=== PATIENT | female | born 1990 | race Caucasian/White ===

== ENCOUNTER 2017-11-09 19:18 | Emergency (ER) | payer MEDICAID, SELFPAY ==
[2017-11-09 19:19] VITALS: BP 138/89; PULSE 120; RESP 20; TEMP 36.6; O2SAT 100; BMI 23.9
--- NOTE | 2017-11-09 19:36 | ED.VISSUMM ---
- ER Visit Summary Date of Service: 11/09/17 Chief Complaint: Acute allergic reaction History of Present Illness: The patient is a 27 F no significant past medical history. About an hour ago she [place] Then developed rash, itching and swelling to her lips and tongue. No trouble breathing or swallowing. She is never had anything like this before. She is never had a reaction before. The only medication she is currently on his Suboxone. She is not on any type of blood pressure medication. Physical Examination: Well-appearing young female. Vital signs are stable afebrile. Pulse ox 100% on room air no signs of hypoxia. She is anxious but no distress. H EENT exam mild swelling to her lips and tongue. No drooling. No stridor. No airway compromise. Neck nontender no lymphadenopathy. Lungs clear to auscultation bilaterally. No rales rhonchi or wheezing. Heart tachycardic no murmur. Abdomen soft nontender. She is moving all 4 extremities. The neurovascular intact. Back nontender. Skin she does have a few scattered areas of rash and hives. There is no petechiae or purpura. No vesicles. No sloughing of skin. No cellulitis. Neurologically she is awake alert without focal motor deficits. Test Results: None Emergency Department Course and Treatment: Treated with IV Solu-Medrol, IV Benadryl and IV Pepcid. Treatment Plan: Patient doing much much better at 1944 and 2034. The swelling of her lips and tongue is nearly resolved. Her anxiety is resolving. Is much much better. She will be discharged home with prescription for prednisone as needed. Return if worse. Disposition: Discharge Impression: Acute allergic reaction with hives and tongue and lip swelling of uncertain etiology This note was generated with [employer] dictation software. It may contain incorrect words, spelling, and punctuation that were not noted in review of the chart prior to signing ED Disposition - Plan for ED Patient: Disposition: Home or Assisted Living Chief Complaint: Allergic Reaction Instructions: ED Allergic Reaction General Other Prescriptions: Prednisone [Deltasone] 40 mg PO DAILY 5 Days tab Referrals: Care Physician,No Primary [Primary Care Provider] - As Needed Additional Instructions: Allergic reaction with rash and facial tongue swelling most likely from the fruit you ate but could be anything that you came in contact with. Only use these prednisone if you still have a rash or continued tongue or lip swelling. Once it is resolved you do not need the medication. Return if getting worse or any trouble swallowing or breathing. Ice to any swollen areas.
--- NOTE | 2017-11-09 19:38 | ED.DEP ---
ED Disposition - Plan for ED Patient: Disposition: Home or Assisted Living Chief Complaint: Allergic Reaction Instructions: ED Allergic Reaction General Other Prescriptions: Prednisone [Deltasone] 40 mg PO DAILY 5 Days tab Referrals: Care Physician,No Primary [Primary Care Provider] - As Needed Additional Instructions: Allergic reaction with rash and facial tongue swelling most likely from the fruit you ate but could be anything that you came in contact with. Only use these prednisone if you still have a rash or continued tongue or lip swelling. Once it is resolved you do not need the medication. Return if getting worse or any trouble swallowing or breathing. Ice to any swollen areas.
[2017-11-09] MEDS: MethylPREDNISolone 125 MG/2 ML Vial IV (19:40)
[2017-11-09] MEDS: DiphenhydrAMINE 50 MG/ML Syringe IV (19:40)
[2017-11-09 19:43] VITALS: BP 140/80; PULSE 105; RESP 14; O2SAT 98
[2017-11-09 20:38] VITALS: PULSE 102; RESP 14; O2SAT 98
== END 2017-11-09 20:39 | disposition home or self-care (01) ==
PROVIDERS: Emergency Provider Emergency Medicine
DX: T78.40XA Allergy, unspecified, initial encounter (principal); X58.XXXA Exposure to other specified factors, initial encounter; R22.0 Localized swelling, mass and lump, head; L50.9 Urticaria, unspecified
CPT/HCPCS: 99283; J7030; A4216; J3490

== ENCOUNTER 2019-04-09 16:56 | Emergency (ER) | payer SELFPAY ==
[2019-04-09 16:58] VITALS: BP 131/85; PULSE 99; RESP 16; TEMP 37; O2SAT 100; BMI 21.4
[2019-04-09 17:37] VITALS: BP 131/84; PULSE 85; RESP 18; O2SAT 98
--- NOTE | 2019-04-09 17:46 | EKG12_ITS ---
Test Reason : PALP Blood Pressure : / mmHG Vent. Rate : 087 BPM Atrial Rate : 087 BPM P-R Int : 138 ms QRS Dur : 070 ms QT Int : 358 ms P-R-T Axes : 065 055 053 degrees QTc Int : 430 ms Normal sinus rhythm with sinus arrhythmia Normal ECG Confirmed by SAMEER MADDOX, JUDY ([id number]), society editor VIRGEN WELLS ([id number]) on 04/11/2019 1:01:19 PM Referred By: Confirmed By:JUDY ESTRELLA MD
--- NOTE | 2019-04-09 17:47 | ED.VIS.GEN ---
History of Present Illness Chief Complaint: Palpitations Detail of Chief Complaint: Also feeling flushed, chest discomfort and nonproductive cough Informant: Patient, Significant Other Onset: Days - First episode occurred Tuesday. She had 2 episodes on Tuesday. She had no episodes yesterday. She had an episode today. Context: Sudden Onset Timing: Intermittent Quality: Feeling flushed, chest discomfort, palpitations Location: Chest Current Severity: Mild Maximum Severity: Moderate Worsened by: Stress Relieved by: Nothing Associated Symptoms: Tearful Narrative: Patient is a 28-year-old female with history of anxiety disorder who presents with nonproductive cough, palpitations chest discomfort and feeling warm/flush that first occurred Tuesday. She had a more significant episode today. She believes that stress. She denies fever, chills or night sweats. She does report mild congestion. Denies ear pain. Denies throat pain or change in voice. She denies dyspnea on exertion. Her cough is nonproductive. She states she has intermittent wheezing. She is a smoker 1 pack/day. She has cut down the amount she has smoked the past 2 days. She denies history of PE or DVT. She denies leg pain, swelling discoloration. She denies GI symptoms. Prior similar symptoms: Yes - Anxiety Recent Illness/Hospitalization: No - Past Medical History (1) Anxiety Status: Acute Past Medical History - Allergies and Home Meds Allergies/Adverse Reactions: Allergies codeine Allergy (Verified 04/09/19 16:57) Manuel Primary Care Physician: [facility] Doctor,Out of [NON-STAFF] - Prior records reviewed: Yes Surgical History: - - D&C ?3 Lives: Spouse/ Significant Other Smoking Status: Current every day smoker Alcohol: Rare Drugs: None Review of Systems General: Denies: Chills, Fever, Malaise, Subjective, Sweats, Weight loss, - Eyes: Denies: Visual changes - bilaterally, Diplopia ENT: Denies: Rhinorrhea, Sore throat Cardiovascular: Reports: Chest pain, Palpitations. Denies: Heart racing, -, - Respiratory: Reports: Cough. Denies: Dyspnea, Sputum, Dyspnea on exertion, Orthopnea, Paroxysmal nocturnal dyspnea, -, - Gastrointestinal: Denies: Abdominal pain, Nausea, Vomiting, Diarrhea, Melena, Hematochezia Musculoskeletal: Denies: Myalgias, Arthralgias, Neck pain, Back pain, Swelling, Extremity Pain, -, - Skin: Denies: Rash, Wounds Neurological: Denies: Headache, Weakness, Numbness Hematologic: Denies: Easy bruising, Easy bleeding Physical Exam Vital Signs/Narrative: Vital Signs Temp Pulse Resp BP Pulse Ox 04/09/19 17:37 85 18 131/84 H 98 04/09/19 16:58 98.6 F 99 16 131/85 H 100 Inital Vital Signs reviewed: Yes General: Well nourished, Well developed, No Acute Distress Head: Normocephalic, Atraumatic Eyes: Perrl, EOMI. Negative for: Pale conjunctiva, Scleral icterus ENT: Moist mucous membranes, No rhinorrhea, TM's clear Neck: Supple, Nontender, No lymphadenopathy, No JVD Cardiovascular: Regular rate, Regular rhythm, No murmurs, Normal S1, Normal S2 Respiratory: No distress, CTA bilaterally, Chest nontender Abdomen: Soft, Nontender, Nondistended, Normal bowel sounds Back: Nontender, Normal Inspection Extremities: Nontender, No edema, - - There is no asymmetry, swelling, discoloration, leg vein distention, palpable cords or tenderness along the distribution of the deep venous system. Skin: Normal color, No rash Neurological: Alert, Oriented x3, Cranial nerves II-XII grossly intact, Normal Strength, Normal Sensation Psychological: Tearful Diagnostic/Tx/Re-eval Chest X-Ray - ED: 2 View, Read by ED Physician, Normal, Heart, Lungs, Mediastinum, Bony Structures, No Acute Disease 04/09/19 17:57 Chest PA and Lateral [RAD] Stat - EKG Initial EKG Interpretation: Sinus Rhythm - Regular rate is 93. OK interval is 146. QS duration 78 ms. QT duration 368 ms. [place] is normal. The EKG is normal. There are no prior EKGs for comparison - Medical Decision Making KG was done per nursing protocol and is unremarkable. Because patient has shortness of breath with cough and intermittent wheezing will obtain chest x-ray to assess for pneumonia versus bronchitis. ED Disposition - Plan for ED Patient: Disposition: Home or Assisted Living Diagnosis: Upper respiratory infection, acute, Anxiety reaction, Palpitations Instructions: Palpitations, URI, Viral, No Abx (Adult) Referrals: [facility] Doctor,Out of [NON-STAFF] - 10-14 Days if not better
--- NOTE | 2019-04-09 17:57 | RAD_ITS ---
STUDY: X-RAY CHEST REASON FOR EXAM: Female, 28 years old. Palpitations TECHNIQUE: PA and lateral views of the chest. COMPARISON: 2015 FINDINGS: EKG leads overlie the chest The lungs are clear and expanded. There is no demonstrated pleural abnormality. Normal size heart. Normal mediastinum and maritza. Normal visualized pulmonary arteries. Normal visualized aortic arch and descending thoracic aorta. Normal visualized thoracic spine. Normal visualized ribs, clavicles, and shoulders. There is no demonstrated abnormality of the visualized soft tissue structures of the upper abdomen. RAD/Chest PA and Lateral IMPRESSION: Normal x-ray examination of the chest. Electronically Signed: Zenon Do MD at 18:26 EST , Service support ,
[2019-04-09 18:20] VITALS: BP 117/62; PULSE 69; RESP 16; O2SAT 100
== END 2019-04-09 18:21 | disposition home or self-care (01) ==
PROVIDERS: Emergency Provider Emergency Medicine
DX: J06.9 Acute upper respiratory infection, unspecified (principal); F41.1 Generalized anxiety disorder; R00.2 Palpitations; F17.200 Nicotine dependence, unspecified, uncomplicated
CPT/HCPCS: 71046; 93005; 99283

== ENCOUNTER 2019-09-22 14:29 | Emergency (ER) | payer SELFPAY ==
[2019-09-22 14:30] VITALS: BP 130/105; PULSE 128; RESP 18; TEMP 36.9; O2SAT 99; BMI 23.6
--- NOTE | 2019-09-22 14:37 | EKG12_ITS ---
Test Reason : PALPS Blood Pressure : / mmHG Vent. Rate : 108 BPM Atrial Rate : 108 BPM P-R Int : 124 ms QRS Dur : 070 ms QT Int : 354 ms P-R-T Axes : 074 061 068 degrees QTc Int : 474 ms Sinus tachycardia Confirmed by SAMEER MADDOX, JUDY ([id number]), editor greeting card BENJAMIN HAMILTON ([id number]) on 09/25/2019 3:23:22 PM Referred By: JOLENE Confirmed By:JUDY ESTRELLA MD
--- NOTE | 2019-09-22 14:37 | RAD_ITS ---
STUDY: X-RAY CHEST REASON FOR EXAM: Female, 29 years old. heart palpitations TECHNIQUE: Single AP portable view of the chest. COMPARISON: To April 27, 2019 FINDINGS: The lungs are clear and expanded. There is no demonstrated pleural abnormality. Normal size heart. Normal mediastinum and maritza. Normal visualized pulmonary arteries. Normal visualized aortic arch and descending thoracic aorta. Normal visualized thoracic spine. Normal visualized ribs, clavicles, and shoulders. There is no demonstrated abnormality of the visualized soft tissue structures of the upper abdomen. RAD/Chest 1 View (Portable) IMPRESSION: No evidence of acute cardiopulmonary process. Electronically Signed: Rusty Shipley DO at 15:30 EDT , Service support ,
[2019-09-22] MEDS: 0.9% Normal Saline 1,000 ML 1000 ML IV (14:52)
[2019-09-22 15:04] LABS: Absolute Lymphocyte Count 1.87 X10^3/uL (0.83-4.51); Absolute Neutrophil Count 5.3 X10^3/uL (2.0-7.7); Basophil# 0.04 X10^3/uL; Basophil% 0.5 % (0-1); Eosinophil# 0.18 X10^3/uL; Eosinophils% 2.2 % (0-5); Hematocrit 41.4 % (37-47); Hemoglobin 14.3 g/dL (12.0-15.0); Lymphocyte # 1.87 X10^3/ul (4.0); Lymphocyte % 23.3 % (19-41); Mean Corp Hgb Conc 34.5 g/dL (32-36); Mean Corpuscular Hgb 32.3 pg (27.0-32.0); Mean Corpuscular Volume 93.5 fL (81-99); Mean Platelet Vol. 9.2 fl (6.2-12.0); Monocyte# 0.62 X10^3/uL; Monocyte% 7.7 % (0-10); NRBC Flagged by Analyzer 0 % (0-5); Neutrophil % 65.9 % (47-70); Platelet Count 299 K/mm3 (150-450); RBC Distribution Width CV 12.3 % (11.6-14.6); RBC Distribution Width SD 42.5 fl (35.1-43.9); Red Blood Count 4.43 M/mm3 (4.2-5.4)
[2019-09-22 15:24] LABS: Internal QC Validated? YES +Cl - CLEAR BKGD; Pregnancy, Serum, hCG Quali. NEGATIVE Negative
[2019-09-22 15:26] LABS: D-Dimer Quantitative (DVT/PE) <= 0.27 FEU/ug/m (0.27-0.49)
[2019-09-22 15:27] LABS: Anion Gap 6 (5-15); BUN 10 mg/dL (7-18); BUN/Creat Ratio 11.1 RATIO (10-20); Calcium,Total 9.4 mg/dL (8.5-10.1); Chloride 108 mmol/L (98-107); EST Glomerular Filtration Rate 78 mL/min (>60); Est Glom Filt Rate - Afr Amer 94 mL/min (>60); Estimated Creatinine Clearance 78.21 ml/min; Glucose 108 mg/dL (74-106); Potassium 3.5 mmol/L (3.5-5.1); Sodium Level 140 mmol/L (136-145)
--- NOTE | 2019-09-22 15:37 | ED.DCSUM_ITS ---
- ER Visit Summary Date of Service: 09/22/19 Chief Complaint: Chest pain and palpitations History of Present Illness: The patient is a 29 F with no primary care physician. She reports she has chest pain that began 5 days ago is a continuous tightness. States that it is 8 out of 10 at worst and 2-10 currently. Is worsened by exertion. Is unchanged breathing. Is relieved by nothing. She reports that she is having episodes of palpitations. States that these last minute to hours at a time. She describes as a fast heart rate is not irregular. She is not experiencing this now. She reports that she has been nauseated, diaphoretic, and short of breath at times. Physical Examination: Vitals: Stable. Afebrile. General: Well-nourished and well-developed. Head: Normocephalic atraumatic. Neck: Supple, no lymphadenopathy. No JVD. Nontender. Cardiovascular: Regular rate and rhythm. No murmurs. Respiratory: No respiratory distress. Clear to auscultation bilaterally. Abdominal: Soft, nontender, nondistended, normal bowel sounds. No guarding, rebound, or peritoneal signs. Back: Nontender. Extremities: Nontender, no edema. Skin: Normal color, no rash. Neurologic: Alert and oriented ?3. Cranial nerves II through XII are intact. Normal strength and sensation. Psych: Normal affect. Test Results: EKG is sinus tach at [address] changes. Troponin is negative. D-dimer is negative. test is negative. Chem-7 shows a chloride 108 and glucose 108. TSH is normal. CBC is normal. Chest x-ray is normal. Emergency Department Course and Treatment: During their stay in the emerge dep artment the patient did have rates that went anywhere from 80-1 28. At this time I do not have an explanation for her symptoms. She is asking if I think that this is due to anxiety. Treatment Plan: This time I discussed the patient think that the safest thing to do would be to follow-up as an outpatient for further evaluation. This may be due to anxiety, but I do not think that changing medications at this time is in her best interest.. She is instructed to [facility] as soon as possible. Return to the emergency department for any wors ening symptoms. Disposition: To home in improved and stable condition. Impression: 1. Atypical chest pain. 2. Sinus tachycardia. This note was generated with [employer] dictation software. It may contain incorrect words, spelling, and punctuation that were not noted in review of the chart prior to signing ED Disposition - Plan for ED Patient: Disposition: Home or Assisted Living Instructions: ED Palpitations Referrals: Froylan Araujo MD [NON-STAFF] - 5-7 Days
[2019-09-22 15:55] VITALS: PULSE 85; RESP 12; O2SAT 97
== END 2019-09-22 15:55 | disposition home or self-care (01) ==
LOC: ED 15:48
PROVIDERS: Emergency Provider Emergency Medicine
DX: R07.89 Other chest pain (principal); R00.0 Tachycardia, unspecified
CPT/HCPCS: 71045; 80048; 84443; 84484; 84703; 85025; 85379; 93005; 96360; 99284; J7030; A4216

== ENCOUNTER 2019-12-24 15:10 | Emergency (ER) | payer SELFPAY ==
[2019-12-24 15:10] VITALS: BP 127/77; PULSE 90; RESP 16; TEMP 36.9; O2SAT 98; BMI 23.1
--- NOTE | 2019-12-24 16:08 | ED.VIS.GEN ---
History of Present Illness Chief Complaint: Abd Pain Informant: Patient Narrative: 29-year-old female presenting with abdominal pain and constipation. She states that she has had a defect in her umbilicus which appears to be a hernia. This is been ongoing for about 6 months. It is reducible. Patient states he has been able to push on it and it goes back in. She does now state that she is having abdominal pain in the left and right sides of her abdomen as well as her epigastrium. She states that she does have chronic constipation and does take MiraLAX daily. She is not been able to make a bowel movement in the last couple of days and is now having pain from this. She has some mild nausea without vomiting. She denies fevers or chills. She states she does not have any urinary or vaginal complaints. She has no surgeries in her abdomen previously. Patient does express concern that she has history of cancer in the family is concerned for this process. She does not have any history herself. - Past Medical History (1) Anxiety Status: Acute Past Medical History - Allergies and Home Meds Allergies/Adverse Reactions: Allergies codeine Allergy (Verified 12/24/19 15:13) Manuel Primary Care Physician: Care Physician,No Primary [Primary Care Provider] - Prior records reviewed: Yes Past Medical History: - - Chronic constipation, anxiety Surgical History: - - D&C ?3 Lives: With Family Smoking Status: Current every day smoker Alcohol: None Drugs: None Review of Systems General: Denies: Chills, Fever, Sweats Eyes: Denies: Visual changes - bilaterally, Diplopia ENT: Denies: Rhinorrhea, Sore throat Cardiovascular: Denies: Chest pain, Palpitations Respiratory: Denies: Dyspnea, Cough, Dyspnea on exertion Gastrointestinal: Reports: Abdominal pain, Nausea, Constipation. Denies: Vomiting, Diarrhea, Melena, Hematochezia Genitourinary: Denies: Dysuria, Hematuria, Frequency Musculoskeletal: Denies: Back pain, Extremity Pain Skin: Denies: Rash, Wounds Neurological: Denies: Headache, Weakness, Numbness Physical Exam Vital Signs/Narrative: Vital Signs Temp Pulse Resp BP Pulse Ox 12/24/19 15:10 98.4 F 90 16 127/77 H 98 Inital Vital Signs reviewed: Yes Head: Normocephalic, Atraumatic Eyes: Perrl ENT: Moist mucous membranes Cardiovascular: Regular rate, Regular rhythm Respiratory: No distress, CTA bilaterally, Chest nontender Abdomen: Soft, Nondistended, - - Mild tenderness to palpation in the left and right flanks as well as the epigastrium. Abdomen is non-peritoneal. Umbilicus has a defect but there does not appear to be a hernia at this time. Back: Normal Inspection Skin: Normal color, No rash Neurological: Alert, Oriented x3 Psychological: Normal affect Diagnostic/Tx/Re-eval Clinical Impression(s) from Imaging Studies Abdomen/Pelvis CT 12/24/19 17:43 IMPRESSION: Periumbilical hernia containing fat. No intra-abdominal mass or obstruction. Electronically Signed: Teo Claros MD at 18:51 EDT , Service support , Laboratory Data 12/24/19 12/24/19 12/24/19 16:00 16:00 16:20 WBC 9.1 RBC 4.46 Hgb 13.8 Hct 41.4 MCV 92.8 MCH 30.9 MCHC 33.3 RDW Std Deviation 39.9 RDW Coeff of Sriram 11.7 Plt Count 267 MPV 9.8 Immature Gran % (Auto) 0.200 Neut % (Auto) 71.5 H Lymph % (Auto) 20.1 [place] % (Auto) 4.8 Eos % (Auto) 2.8 Baso % (Auto) 0.6 Absolute Neuts (auto) 6.5 Absolute Lymphs (auto) 1.83 Nucleated RBC % 0 Sodium Potassium Chloride Carbon Dioxide Anion Gap BUN Creatinine Estim Creat Clear Calc Est GFR (MDRD) Af Amer Est GFR (MDRD) Non-Af BUN/Creatinine Ratio Glucose Calcium Total Bilirubin AST ALT Alkaline Phosphatase Total Protein Albumin Globulin Albumin/Globulin Ratio Lipase Urine Color Yellow Urine Clarity Clear Urine pH 7.0 Ur Specific [place] 1.010 Urine Protein Negative Urine Glucose (UA) Normal Urine Ketones Negative Urine Occult Blood 10 H Urine Nitrite Negative Urine Bilirubin Negative Urine Urobilinogen Normal Ur Leukocyte Esterase Negative Urine Test Negative 12/24/19 16:20 WBC RBC Hgb Hct MCV MCH MCHC RDW Std Deviation RDW Coeff of Sriram Plt Count MPV Immature Gran % (Auto) Neut % (Auto) Lymph % (Auto) [place] % (Auto) Eos % (Auto) Baso % (Auto) Absolute Neuts (auto) Absolute Lymphs (auto) Nucleated RBC % Sodium 141 Potassium 3.9 Chloride 109 H Carbon Dioxide 27.0 Anion Gap 5 BUN 7 Creatinine 0.85 Estim Creat Clear Calc 82.81 Est GFR (MDRD) Af Amer 100 Est GFR (MDRD) Non-Af 82 BUN/Creatinine Ratio 8.2 L Glucose 99 Calcium 9.3 Total Bilirubin 0.60 AST 20 ALT 23 Alkaline Phosphatase 59 Total Protein 8.1 Albumin 4.2 Globulin 3.9 Albumin/Globulin Ratio 1.1 Lipase 74 Urine Color Urine Clarity Urine pH Ur Specific [place] Urine Protein Urine Glucose (UA) Urine Ketones Urine Occult Blood Urine Nitrite Urine Bilirubin Urine Urobilinogen Ur Leukocyte Esterase Urine Test - Medical Decision Making Patient was seen and evaluated on arrival. Her vital signs are stable and she is afebrile. She has complaint of constipation and abdominal pain. I did check lab work which is otherwise unremarkable. Discussed with patient given benign exam and normal lab work that she likely does not need a CT, however she is concerned because this is the way her father presented when he had malignancy. After discussion we did obtain CT abdomen pelvis which shows no acute pathology. Patient will be given magnesium citrate for home. She is given return precautions. Patient is stable for discharge. Impression: 1. Abdominal pain 2. Constipation ED Disposition - Plan for ED Patient: Disposition: Home or Assisted Living Instructions: ED Abdominal Pain Unkn Cause Fem, ED Constipation Referrals: Care Physician,No Primary [Primary Care Provider] -
[2019-12-24 16:29] LABS: Color, Urine Yellow (Yellow); Glucose, Dipstick Normal (Normal); Ketone-Dipstick Negative (Negative); Leukocyte Esterase-Dipstick Negative /ul (Negative); Nitrite-Dipstick Negative (Negative); Occult Blood-Urine 10 /ul (Negative); Protein-Dipstick Negative (Negative); Urine Bilirubin Dipstick Negative (Negative); Urine Clarity Clear (Clear); Urine Urobilinogen Normal (Normal)
[2019-12-24 16:35] LABS: Internal QC Validated? YES +Cl - CLEAR BKGD; Pregnancy, Urine Negative Negative
[2019-12-24 16:36] LABS: Absolute Lymphocyte Count 1.83 X10^3/uL (0.83-4.51); Absolute Neutrophil Count 6.5 X10^3/uL (2.0-7.7); Basophil# 0.05 X10^3/uL; Basophil% 0.6 % (0-1); Eosinophil# 0.25 X10^3/uL; Eosinophils% 2.8 % (0-5); Hematocrit 41.4 % (37-47); Hemoglobin 13.8 g/dL (12.0-15.0); Lymphocyte # 1.83 X10^3/ul (4.0); Lymphocyte % 20.1 % (19-41); Mean Corp Hgb Conc 33.3 g/dL (32-36); Mean Corpuscular Hgb 30.9 pg (27.0-32.0); Mean Corpuscular Volume 92.8 fL (81-99); Mean Platelet Vol. 9.8 fl (6.2-12.0); Monocyte# 0.44 X10^3/uL; Monocyte% 4.8 % (0-10); NRBC Flagged by Analyzer 0 % (0-5); Neutrophil % 71.5 % (47-70); Platelet Count 267 K/mm3 (150-450); RBC Distribution Width CV 11.7 % (11.6-14.6); RBC Distribution Width SD 39.9 fl (35.1-43.9); Red Blood Count 4.46 M/mm3 (4.2-5.4); White Blood Count 9.1 K/mm3 (4.4-11.0)
[2019-12-24 16:57] LABS: ALB/GLOB Ratio 1.1 RATIO (0.9-2.4); AST(SGOT) 20 U/L (15-37); Alanine Aminotransfer ALT/SGPT 23 U/L (13-56); Albumin, Serum 4.2 g/dL (3.2-5.0); Alkaline Phosphatase 59 U/L (45-117); Anion Gap 5 (5-15); BUN 7 mg/dL (7-18); BUN/Creat Ratio 8.2 RATIO (10-20); Calcium,Total 9.3 mg/dL (8.5-10.1); Chloride 109 mmol/L (98-107); Creatinine, Serum 0.85 mg/dL (0.55-1.02); EST Glomerular Filtration Rate 82 mL/min (>60); Est Glom Filt Rate - Afr Amer 100 mL/min (>60); Estimated Creatinine Clearance 82.81 ml/min; Globulin 3.9 g/dL (2.2-4.2); Glucose 99 mg/dL (74-106); Lipase 74 U/L (73-393); Potassium 3.9 mmol/L (3.5-5.1); Protein, Total 8.1 g/dL (6.4-8.2); Sodium Level 141 mmol/L (136-145)
[2019-12-24] MEDS: Ondansetron 4 MG/2 ML Vial IM (16:58)
[2019-12-24 17:11] VITALS: RESP 16
--- NOTE | 2019-12-24 17:43 | CT_ITS ---
STUDY: CT ABDOMEN AND PELVIS WITHOUT CONTRAST REASON FOR EXAM: Female, 29 years old. BULGE AROUND BELLY BUTTON SINCE JUMPING INTO POOL RADIATION DOSAGE (If Supplied By Facility): CTDIvol = ( 6.27 ) mGy, DLP = ( 300.75 ) mGycm TECHNIQUE: Transaxial images were obtained from the dome of the diaphragm to the symphysis pubis without oral contrast, and without intravenous contrast. Sagittal and coronal images were reconstructed. Individualized dose optimization techniques were used for this CT. COMPARISON: None. FINDINGS: The visualized lung bases are unremarkable. The visualized portions of the heart are within normal limits. Normal liver. Normal gallbladder and extrahepatic biliary system. Normal spleen. Normal pancreas. Normal bilateral adrenal glands. Normal right kidney. Normal left kidney. Normal visualized stomach. Normal small intestine. Normal colon. There is abundant stool. The appendix is visualized and appears normal. Normal abdominal aorta. Normal inferior vena cava. Normal retroperitoneum. Normal urinary bladder. Normal visualized uterus. There is no free fluid in the abdomen or pelvis. There is a small umbilical hernia containing fat. Normal osseous structures. CT/Abdomen/Pelvis without Cont IMPRESSION: Periumbilical hernia containing fat. No intra-abdominal mass or obstruction. Electronically Signed: Teo Claros MD at 18:51 EDT , Service support ,
[2019-12-24] MEDS: Magnesium Citrate 300 ML PO (19:06)
[2019-12-24 19:08] VITALS: BP 125/74; PULSE 80; RESP 14; O2SAT 99
== END 2019-12-24 19:09 | disposition home or self-care (01) ==
PROVIDERS: Emergency Provider Student in an Organized Health Care Education/Training Program
DX: R10.9 Unspecified abdominal pain (principal); K59.09 Other constipation; K42.9 Umbilical hernia without obstruction or gangrene; F41.9 Anxiety disorder, unspecified; F17.200 Nicotine dependence, unspecified, uncomplicated
CPT/HCPCS: 74176; 80053; 81002; 81025; 83690; 85025; 96372; 99283; A4216; J2405

== ENCOUNTER 2021-01-15 00:24 | Emergency (ER) | payer SELFPAY ==
[2021-01-15 00:25] VITALS: BP 123/88; PULSE 78; RESP 18; TEMP 35.9; O2SAT 100; BMI 18.8
--- NOTE | 2021-01-15 01:19 | RAD_ITS ---
STUDY: X-RAY CHEST REASON FOR EXAM: Female, 30 years old. palpitations TECHNIQUE: Portable, upright, AP chest radiograph COMPARISON: 09/22/2019 FINDINGS: The lungs are clear and expanded. There is no demonstrated pleural abnormality. Normal size heart. Normal mediastinum and maritza. Normal visualized pulmonary arteries. Normal visualized aortic arch and descending thoracic aorta. Normal visualized thoracic spine. Normal visualized ribs, clavicles, and shoulders. There is no demonstrated abnormality of the visualized soft tissue structures of the upper abdomen. RAD/Chest 1 View (Portable) IMPRESSION: No acute abnormal cardiopulmonary finding. Electronically Signed: Taiwo Mcmahon MD at 2:05 EDT Tel , Service support ,
--- NOTE | 2021-01-15 01:19 | EDS_ITS ---
HPI History of Present Illness Chief Complaint: Palpitations Narrative Narrative: 30-year-old female with history of anxiety and palpitations presenting with a feeling of palpitations. She states that this has not been a problem for about a year. Is been going on for the last 3 nights. It feels like when she lays down she gets palpitations and then she gets worked up and vomits. She denies chest pain. She is not had fever, chills, cough, body aches, change in taste or smell. She states she has no other medical problems. Patient is currently in between primary care is because she is waiting for her Medicaid to be approved. Patient is not currently on anything for anxiety ei ther. PFSH PFSH Home Medications buprenorphine-naloxone 0.25 ea PO DAILY 09/22/19 [History Last Taken Unknown] Allergy/AdvReac Type Severity Reaction Status Date / Time codeine Allergy Hives Verified 01/15/21 00:27 Social History Smoking Status: Current every day smoker tobacco type: cigarettes ROS ROS ED Constitutional Constitutional ED: Denies chills, fever(s) or sweats Eyes Eyes: Denies blurry vision or diplopia ENT ENT ED: Denies rhinorrhea or sore throat Cardiovascular Cardiovascular: Reports palpitations and racing heartbeat; Denies chest pain Respiratory/Chest Respiratory/Chest: Denies cough, dyspnea or sputum Gastrointestinal Gastrointestinal: Reports nausea and vomiting; Denies abdominal pain, constipation, diarrhea or melena Genitourinary Genitourinary ED: Denies dysuria or hematuria Musculoskeletal Musculoskeletal: Denies arthralgias or myalgias Integumentary Denies abscess or rash Neurologic Neurologic: Denies headache(s) or paresthesias Psychiatric Psychiatric: Reports anxiety; Denies suicidal ideation or suicidal thoughts EXAM Physical Exam Const Vital Signs: 01/15/21 00:25 01/15/21 00:28 01/15/21 01:23 Temperature 96.7 F L Temperature Source Temporal Pulse Rate 78 Respiratory Rate 18 Respiratory Effort Normal Non-Labored Respiratory Pattern Normal Blood Pressure 123/88 H Blood Pressure Mean 99 Pulse Ox 100 Oxygen Delivery Method Room Air Room Air Fraction of Inspired Oxygen (FIO2) 98 01/15/21 02:36 Temperature Temperature Source Pulse Rate 62 Respiratory Rate 14 Respiratory Effort Respiratory Pattern Blood Pressure 111/73 Blood Pressure Mean 85 Pulse Ox 98 Oxygen Delivery Method Room Air Fraction of Inspired Oxygen (FIO2) Positive well nourished General Appearance ED: NAD; Negative for pallor HEENT Reports moist mucous membranes Negative for trauma Eyes PERRL and EOMs intact bilaterally Resp normal respiratory effort and clear to auscultation bilaterally Cardio regular rate and regular rhythm Neuro oriented x3, CN's II-XII intact bilaterally and no sensory deficits noted Sensorium / Orientation: alert Motor Exam: strength 5/5 throughout Psych mental status grossly normal Skin no rashes or lesions noted General Skin Exam: Negative for jaundice or pallor MDM MDM MDM Narrative Medical decision making narrative: Patient presenting for palpitations. She states she does not specifically have chest pain. She states that the last 3 nights she has been having these episodes of palpitations which makes her heart feel like it is racing. She does states she has a history of this. She is unsure if this is anxiety and she has a history of anxiety as well. EKG on my interpretation shows a normal sinus rhythm at 82 bpm without sign of ischemic changes. Will obtain blood work and a chest x-ray. Patient states it is possible she could be so I will test for this as well. test is negative. Lab work all within normal limits. Electrolytes are normal. Troponin is negative. Chest x-ray on my interpretation shows no acute cardiopulmonary process and the radiologist does agree. I did not find a reason for her palpitations. Patient is currently awaiting her Medicaid to be approved so that she can establish with a primary care physician. I feel she is safe for discharge at this time. Impression: 1. Palpitation Lab Data Attestation: I reviewed the patient's lab results. Labs: Laboratory Results - last 24 hr 01/15/21 01/15/21 01/15/21 01:28 01:34 01:34 WBC 9.3 RBC 4.13 L Hgb 13.1 Hct 39.0 MCV 94.4 MCH 31.7 MCHC 33.6 RDW Std Deviation 41.2 RDW Coeff of Sriram 11.9 Plt Count 290 MPV 9.4 Immature Gran % (Auto) 0.400 Neut % (Auto) 52.2 Lymph % (Auto) 30.0 [place] % (Auto) 8.4 Eos % (Auto) 8.1 H Baso % (Auto) 0.9 Absolute Neuts (auto) 4.9 Absolute Lymphs (auto) 2.78 Nucleated RBC % 0 Sodium 140 Potassium 3.7 Chloride 109 H Carbon Dioxide 30.0 Anion Gap 1 L BUN 18 Creatinine 0.71 Estim Creat Clear Calc 92.30 Est GFR (MDRD) Af Amer 123 Est GFR (MDRD) Non-Af 101 BUN/Creatinine Ratio 25.4 H Glucose 98 Calcium 8.8 Troponin I High Sens 5 Urine Test Negative Radiography Diagnostic Testing: Radiology Impression Chest X-Ray 01/15/21 01:19 IMPRESSION: No acute abnormal cardiopulmonary finding. Electronically Signed: Taiwo Mcmahon MD at 2:05 EDT Tel , Service support , Discharge Plan Triage Chief Complaint: Palpitations ED Provider: Ryan Wagner Dx/Rx/DC Orders Instructions: ED Palpitations Prescriptions: No Action buprenorphine-naloxone 1 EACH film 0.25 ea PO DAILY RF: 0 Primary Care Provider: Care Physician,No Primary Referrals: Care Physician,No Primary [Primary Care Provider] - Disposition Disposition: Home, Self Care
--- NOTE | 2021-01-15 01:19 | EKG12_ITS ---
Test Reason : PALPS Blood Pressure : / mmHG Vent. Rate : 082 BPM Atrial Rate : 082 BPM P-R Int : 136 ms QRS Dur : 074 ms QT Int : 376 ms P-R-T Axes : 067 040 052 degrees QTc Int : 439 ms Normal sinus rhythm with sinus arrhythmia Normal ECG Confirmed by SAMEER MADDOX, JUDY ([id number]), book or script editor [employer] ([id number]) on 01/19/2021 12:50:35 PM Referred By: ARONLD Confirmed By:JUDY ESTRELLA MD
[2021-01-15 01:41] LABS: Absolute Lymphocyte Count 2.78 X10^3/uL (0.83-4.51); Absolute Neutrophil Count 4.9 X10^3/uL (2.0-7.7); Basophil# 0.08 X10^3/uL; Basophil% 0.9 % (0-1); Eosinophil# 0.75 X10^3/uL; Eosinophils% 8.1 % (0-5); Hemoglobin 13.1 g/dL (12.0-15.0); Lymphocyte # 2.78 X10^3/ul (0.83-4.51); Mean Corp Hgb Conc 33.6 g/dL (32-36); Mean Corpuscular Hgb 31.7 pg (27.0-32.0); Mean Corpuscular Volume 94.4 fL (81-99); Mean Platelet Vol. 9.4 fl (6.2-12.0); Monocyte# 0.78 X10^3/uL; Monocyte% 8.4 % (0-10); NRBC Flagged by Analyzer 0 % (0-5); Neutrophil # 4.85 X10^3/uL (2.7-7.7); Neutrophil % 52.2 % (47-70); Platelet Count 290 K/mm3 (150-450); RBC Distribution Width CV 11.9 % (11.6-14.6); RBC Distribution Width SD 41.2 fl (35.1-43.9); Red Blood Count 4.13 M/mm3 (4.2-5.4); White Blood Count 9.3 K/mm3 (4.4-11.0)
[2021-01-15 01:52] LABS: Internal QC Validated? YES +Cl - CLEAR BKGD; Pregnancy, Urine Negative Negative
[2021-01-15 01:58] LABS: Anion Gap 1 (5-15); BUN 18 mg/dL (7-18); BUN/Creat Ratio 25.4 RATIO (10-20); Calcium,Total 8.8 mg/dL (8.5-10.1); Chloride 109 mmol/L (98-107); Creatinine, Serum 0.71 mg/dL (0.55-1.02); EST Glomerular Filtration Rate 101 mL/min (>60); Est Glom Filt Rate - Afr Amer 123 mL/min (>60); Glucose 98 mg/dL (74-106); Potassium 3.7 mmol/L (3.5-5.1); Sodium Level 140 mmol/L (136-145); Troponin-I HS 5 pg/mL (3.0-54.0)
[2021-01-15 02:36] VITALS: BP 111/73; PULSE 62; RESP 14; O2SAT 98
[2021-01-15 03:45] VITALS: BP 105/69; PULSE 62; RESP 14; O2SAT 97
== END 2021-01-15 04:04 | disposition home or self-care (01) ==
PROVIDERS: Emergency Provider Student in an Organized Health Care Education/Training Program
DX: R00.2 Palpitations (principal); F17.210 Nicotine dependence, cigarettes, uncomplicated
CPT/HCPCS: 71045; 80048; 81025; 84484; 85025; 93005; 99284; A4216

== ENCOUNTER 2021-04-12 21:32 | Emergency (ER) | payer SELFPAY ==
[2021-04-12 21:33] VITALS: BP 130/90; PULSE 92; RESP 16; TEMP 36.4; O2SAT 100; BMI 20.9
--- NOTE | 2021-04-12 21:48 | EKG12_ITS ---
Test Reason : PALP Blood Pressure : / mmHG Vent. Rate : 073 BPM Atrial Rate : 073 BPM P-R Int : 134 ms QRS Dur : 072 ms QT Int : 376 ms P-R-T Axes : 067 046 056 degrees QTc Int : 414 ms Normal sinus rhythm with sinus arrhythmia Normal ECG Confirmed by DOMINGO MADDOX, MARIAN ([id number]), newspaper or periodical editor [employer] ([id number]) on 04/14/2021 10:05:35 AM Referred By: BRETT Confirmed By:MARIAN LANE MD
--- NOTE | 2021-04-12 22:01 | RAD_ITS ---
INDICATION: chest pain EXAMINATION/TECHNIQUE: X-RAY - XR Chest 1 View COMPARISON: 01/15/2021 chest x-ray FINDINGS: LINES/DEVICES: None. LUNGS: Symmetric normal lung volumes. No airspace opacity or abnormal interstitial pattern. No nodule or mass. No pleural effusion or pneumothorax. MEDIASTINUM AND CARDIOVASCULAR STRUCTURES: Normal size and contour of the cardiomediastinal silhouette. No evidence of pulmonary vascular congestion. BONES AND SOFT TISSUES: No abnormality within limits of the exam. RAD/Chest 1 View (Portable) IMPRESSION: 1. No radiographic evidence of acute cardiopulmonary disease. Electronically Signed: Thang Rich DO at 22:27 EST Tel , Service support ,
--- NOTE | 2021-04-12 22:31 | ED.VIS.CHEST ---
HPI History of Present Illness Chief Complaint: Palpitations Informant: patient Onset/Context/Timing Onset: Weeks Activity at onset: sudden Timing: Intermittent Current Severity: Mild Maximum Severity: Mild Worsened By: Nothing Relieved By: Nothing Narrative Prior Similar Symptoms: Yes Recent Illness/Hospitalization: No CVD Risk Factors: Negative for Hypertension, Diabetes and Hypercholesterolemia PE Risk Factors: Negative for Recent Travel/Surgery and Recent Immobilization TAD Risk Factors: Negative for Marfan's Syndrome and Hypertension PFSH PFSH Home Medications buprenorphine-naloxone 0.25 ea PO DAILY 09/22/19 [History Last Taken Unknown] Allergy/AdvReac Type Severity Reaction Status Date / Time codeine Allergy Hives Verified 04/12/21 21:35 Social History Smoking Status: Current every day smoker tobacco type: cigarettes ROS ROS ED ROS Narrative Denies nausea, vomiting, diarrhea or fever. She has had thinning of her hair. Review of Systems ROS Unobtainable: Denies due to encephalopathy Constitutional Constitutional ED: Denies fever(s) Eyes Eyes: Reports none; Denies change in vision ENT ENT ED: Denies ear pain Cardiovascular Cardiovascular: Reports as per HPI, palpitations and racing heartbeat Respiratory/Chest Respiratory/Chest: Denies dyspnea Gastrointestinal Gastrointestinal: Denies abdominal pain, diarrhea, nausea or vomiting Genitourinary Genitourinary ED: Denies dysuria Musculoskeletal Musculoskeletal: Denies myalgias Integumentary Denies rash Neurologic Neurologic: Denies headache(s) Psychiatric Psychiatric: Denies depression Endocrine Endocrinology: Denies polyuria Hematologic/Lymphatic Hematologic/Lymphatic: Denies easy bruising Allergic/Immunologic Allergic/Immunologic ED: Denies urticaria EXAM Physical Exam Narrative Exam Narrative: 30 female no acute distress vital signs stable afebrile pulse 92. Pulse ox 90% on room air no hypoxia. HEENT exam unremarkable. Neck nontender no lymphadenopathy. Lungs clear to auscultation bilaterally heart regular rhythm no murmur. Abdomen soft nontender. Moving all 4 extremities. Calves are nontender without edema or cords. Neurologically she is awake alert with no focal motor deficits. Back nontender. Const Vital Signs: 04/12/21 21:33 04/12/21 22:27 04/12/21 23:45 Temperature 97.6 F L Temperature Source Temporal Pulse Rate 92 60 Respiratory Rate 16 8 L Blood Pressure 130/90 H 118/82 H Blood Pressure Mean 103 94 Pulse Ox 100 97 Oxygen Delivery Method Room Air Room Air Positive well nourished and well developed; Negative for obese, cachectic, contractures or unkempt General Appearance ED: well developed and NAD; Negative for unkempt, cachectic, contractures or pallor Nutritional Appearance: Negative for cachectic or obese HEENT Reports moist mucous membranes normocephalic; Negative for atraumatic Eyes PERRL and EOMs intact bilaterally Neck no lymphadenopathy, supple and no JVD General: Negative for tenderness Chest Wall inspection of chest normal and palpation of chest normal Resp normal respiratory effort and clear to auscultation bilaterally Effort and Inspection: respiratory distress Auscultation: Negative for rales, rhonchi or wheezes Cardio regular rate, regular rhythm, S1 normal heart sound, S2 normal heart sound and no murmurs Rate: Negative for bradycardia or tachycardic GI normal to inspection, nondistended, normoactive bowel sounds, soft to palpation, non-tender, non-distended and no masses Back/Spine no CVA tenderness General Back: Negative for CVA tenderness Extremity normal to inspection General Extremety ED: Negative for edema or tenderness General Extremity: Negative for edema Neuro oriented x3 and CN's II-XII intact bilaterally Sensorium / Orientation: awake, alert, oriented to person, oriented to place and oriented to time Motor Exam: strength 5/5 throughout Psych mental status grossly normal Appearance: Negative for unkempt Mood & Affect: Negative for depressed or tearful Skin no rashes or lesions noted and no wounds General Skin Exam: Negative for jaundice or pallor MDM MDM MDM Narrative Medical decision making narrative: 30-year-old complaint of palpitations. She has a smart watch and her heart rate stays high as 163 at home. She had a prior history of this with anxiety. There is some family history of thyroid disease. She denies any other symptoms. Repeat exam patient is doing well at 11:52 PM. She denies ever all her normal test results. We discussed outpatient follow-up for rn clinical review either Holter or event. Versus the possibility this is all secondary to anxiety. Lab Data Attestation: I reviewed the patient's lab results. Lab results narrative: CBC shows a white count 8. Hemoglobin 13.1. Electrolytes unremarkable gap of 3 normal BUN and creatinine. Glucose 112. Troponin normal at 4 TSH normal at 2.31. Chest x-ray unremarkable. Labs: Laboratory Results - last 24 hr 04/12/21 04/12/21 04/12/21 22:00 22:00 22:00 WBC 8.3 RBC 4.16 L Hgb 13.1 Hct 38.6 MCV 92.8 MCH 31.5 MCHC 33.9 RDW Std Deviation 40.2 RDW Coeff of Sriram 11.7 Plt Count 311 MPV 9.9 Immature Gran % (Auto) 0.400 Neut % (Auto) 47.3 Lymph % (Auto) 34.7 [place] % (Auto) 9.5 Eos % (Auto) 7.4 H Baso % (Auto) 0.7 Absolute Neuts (auto) 3.9 Absolute Lymphs (auto) 2.86 Nucleated RBC % 0 Sodium 139 Potassium 3.7 Chloride 108 H Carbon Dioxide 28.0 Anion Gap 3 L BUN 16 Creatinine 0.94 Estim Creat Clear Calc 77.31 Est GFR (MDRD) Af Amer 88 Est GFR (MDRD) Non-Af 73 BUN/Creatinine Ratio 17.0 Glucose 112 H Calcium 8.9 Troponin I High Sens 4 TSH 2.31 Radiography Chest X-Ray - ED: 1 View, Read by ED Physician, Normal, Heart, Lungs, Mediastinum, Bony Structures and No Acute Disease Diagnostic Testing: Clinical Impression(s) from Imaging Studies Chest X-Ray 04/12/21 22:01 IMPRESSION: 1. No radiographic evidence of acute cardiopulmonary disease. Electronically Signed: Thang Rich DO at 22:27 EST Tel , Service support , Portable single view chest x-ray interpreted by myself and the radiologist as no acute abnormality. Normal cardiac silhouette. Rhythm Strip Rhythm Strip: Sinus Rhythm Rate: 73 Ectopy: None EKG Initial EKG: Attestation: I personally reviewed and interpreted this EKG as follows: Interpretation: Sinus Rhythm and No Acute Injury Pattern Comments: Normal sinus rhythm rate of 73 no acute signs of TX or ischemia nor dysrhythmia. Prior EKG tracings: not available for review Discharge Plan Triage Chief Complaint: Palpitations ED Provider: Esteban Gupta Dx/Rx/DC Orders Clinical Impression: Anxiety, Heart palpitations Instructions: ED Palpitations Prescriptions: No Action buprenorphine-naloxone 1 EACH film 0.25 ea PO DAILY RF: 0 Primary Care Provider: Care Physician,No Primary Referrals: Danie Wong MD [STAFF PHYSICIAN] - As soon as possible Taiwo Gill MD [STAFF PHYSICIAN] - As soon as possible Care Physician,No Primary [Primary Care Provider] - Activity Restrictions/Additional Instructions: All your test today including EKG chest x-ray and labs including thyroid studies were all normal. This may be secondary to anxiety could also be secondary to an abnormal heart rhythm which we would only find on the monitor. Follow-up with one of the 2 physicians I referred you to once a cloud solutions architect the other is a primary care physician they can get you set up to have a rn clinical review you can wear to try to catch and determine if this is from just anxiety or if it is a heart rhythm issue. Disposition Disposition: Home, Self Care
[2021-04-12 22:37] LABS: Anion Gap 3 (5-15); BUN 16 mg/dL (7-18); Calcium,Total 8.9 mg/dL (8.5-10.1); Chloride 108 mmol/L (98-107); Creatinine, Serum 0.94 mg/dL (0.55-1.02); EST Glomerular Filtration Rate 73 mL/min (>60); Est Glom Filt Rate - Afr Amer 88 mL/min (>60); Estimated Creatinine Clearance 77.31 ml/min; Glucose 112 mg/dL (74-106); Potassium 3.7 mmol/L (3.5-5.1); Sodium Level 139 mmol/L (136-145); Troponin-I HS 4 pg/mL (3.0-54.0)
[2021-04-12 22:44] LABS: Absolute Lymphocyte Count 2.86 X10^3/uL (0.83-4.51); Absolute Neutrophil Count 3.9 X10^3/uL (2.0-7.7); Basophil# 0.06 X10^3/uL; Basophil% 0.7 % (0-1); Eosinophil# 0.61 X10^3/uL; Eosinophils% 7.4 % (0-5); Hematocrit 38.6 % (37-47); Hemoglobin 13.1 g/dL (12.0-15.0); Lymphocyte # 2.86 X10^3/ul (0.83-4.51); Lymphocyte % 34.7 % (19-41); Mean Corp Hgb Conc 33.9 g/dL (32-36); Mean Corpuscular Hgb 31.5 pg (27.0-32.0); Mean Corpuscular Volume 92.8 fL (81-99); Mean Platelet Vol. 9.9 fl (6.2-12.0); Monocyte# 0.78 X10^3/uL; Monocyte% 9.5 % (0-10); NRBC Flagged by Analyzer 0 % (0-5); Neutrophil # 3.91 X10^3/uL (2.7-7.7); Neutrophil % 47.3 % (47-70); Platelet Count 311 K/mm3 (150-450); RBC Distribution Width CV 11.7 % (11.6-14.6); RBC Distribution Width SD 40.2 fl (35.1-43.9); Red Blood Count 4.16 M/mm3 (4.2-5.4); White Blood Count 8.3 K/mm3 (4.4-11.0)
[2021-04-12 23:15] LABS: Thyroid Stim Hormone (TSH) 2.31 uIU/mL (0.358-3.74)
[2021-04-12 23:45] VITALS: BP 118/82; PULSE 60; RESP 8; O2SAT 97
[2021-04-13 00:04] VITALS: BP 116/80; PULSE 74; RESP 17; O2SAT 98
== END 2021-04-13 00:05 | disposition home or self-care (01) ==
PROVIDERS: Emergency Provider Emergency Medicine
DX: F41.9 Anxiety disorder, unspecified (principal); R00.2 Palpitations; F17.210 Nicotine dependence, cigarettes, uncomplicated
CPT/HCPCS: 71045; 80048; 84443; 84484; 85025; 93005; 99284

== ENCOUNTER 2021-08-06 16:15 | Emergency (ER) | payer SELFPAY ==
[2021-08-06 16:16] VITALS: BP 152/94; PULSE 99; RESP 14; TEMP 36.3; O2SAT 100; BMI 20.9
--- NOTE | 2021-08-06 16:45 | EKG12_ITS ---
Test Reason : DYSRHYTHMIA Blood Pressure : / mmHG Vent. Rate : 064 BPM Atrial Rate : 064 BPM P-R Int : 122 ms QRS Dur : 072 ms QT Int : 390 ms P-R-T Axes : 063 041 048 degrees QTc Int : 402 ms Normal sinus rhythm with sinus arrhythmia Normal ECG Confirmed by DOMINGO MADDOX, MARIAN ([id number]), telegraph editor [employer] ([id number]) on 08/07/2021 2:49:54 PM Referred By: ARNOLD Confirmed By:MARIAN LANE MD
--- NOTE | 2021-08-06 16:50 | RAD_ITS ---
EXAM: XR CHEST, 1 VIEW : 1990 CLINICAL INDICATION: chest pain TECHNIQUE: Frontal view of the chest. This report was created using [employer] report generation technology. COMPARISON: 04/12/2021 FINDINGS: LUNGS AND PLEURAL SPACES: Unremarkable. No consolidation or edema. No pneumothorax. No effusion. HEART: Unremarkable. Cardiac silhouette not enlarged. MEDIASTINUM: Central airways and mediastinal contour are unremarkable. BONES/JOINTS: Unremarkable. SOFT TISSUES: Unremarkable. RAD/Chest 1 View (Portable) IMPRESSION: No radiographic evidence of acute cardiopulmonary disease. at 1705 Reported and signed by: Kartik Vuong MD Electronically Signed: Kartik Vuong MD at 17:04 EDT ,
[2021-08-06 18:13] LABS: Absolute Lymphocyte Count 2.05 X10^3/uL (0.83-4.51); Absolute Neutrophil Count 5.1 X10^3/uL (2.0-7.7); Basophil# 0.05 X10^3/uL; Basophil% 0.6 % (0-1); Eosinophil# 0.45 X10^3/uL; Eosinophils% 5.4 % (0-5); Hematocrit 37.2 % (37-47); Hemoglobin 12.9 g/dL (12.0-15.0); Lymphocyte # 2.05 X10^3/ul (0.83-4.51); Lymphocyte % 24.8 % (19-41); Mean Corp Hgb Conc 34.7 g/dL (32-36); Mean Corpuscular Hgb 32.3 pg (27.0-32.0); Mean Platelet Vol. 9.4 fl (6.2-12.0); Monocyte# 0.62 X10^3/uL; Monocyte% 7.5 % (0-10); NRBC Flagged by Analyzer 0 % (0-5); Neutrophil # 5.06 X10^3/uL (2.7-7.7); Neutrophil % 61.3 % (47-70); Platelet Count 251 K/mm3 (150-450); RBC Distribution Width CV 11.9 % (11.6-14.6); RBC Distribution Width SD 40.9 fl (35.1-43.9); White Blood Count 8.3 K/mm3 (4.4-11.0)
--- NOTE | 2021-08-06 18:25 | ED.VIS.BACK ---
HPI History of Present Illness Chief Complaint: Back Narrative Narrative: 30-year-old female with upper back pain for a couple of days. She states that today when she was at the urgent care she started the feel her chest being tight and she was short of breath. She states has been out of her Klonopin and she does have a history of anxiety. She herself believes she was having an anxiety attack. She thinks that her back is musculoskeletal. She was told at the urgent care to come over for a PE work-up. She has no risk factors for DVT/PE. She does not have sharp pleuritic pain. No cardiac history. PFSH PFSH Home Medications buprenorphine-naloxone 0.25 ea PO DAILY 09/22/19 [History Last Taken Unknown] naproxen [Naprosyn] 500 mg PO BID PRN #20 tab 08/06/21 [Rx Last Taken Unknown] tizanidine [Zanaflex] 4 mg PO QHS PRN #10 cap 08/06/21 [Rx Last Taken Unknown] Allergy/AdvReac Type Severity Reaction Status Date / Time codeine Allergy Hives Verified 08/06/21 16:21 Social History Smoking Status: Current every day smoker tobacco type: cigarettes ROS ROS ED Constitutional Constitutional ED: Denies chills or fever(s) Eyes Eyes: Denies blurry vision or change in vision ENT ENT ED: Denies rhinorrhea or sore throat Cardiovascular Cardiovascular: Reports chest pain, palpitations and racing heartbeat Respiratory/Chest Respiratory/Chest: Reports dyspnea; Denies dyspnea on exertion or sputum Gastrointestinal Gastrointestinal: Denies abdominal pain, nausea or vomiting Genitourinary Genitourinary ED: Denies dysuria or hematuria Musculoskeletal Musculoskeletal: Reports back pain Integumentary Denies abscess or rash Neurologic Neurologic: Denies headache(s) or weakness Psychiatric Psychiatric: Denies anxiety or depression EXAM Physical Exam Const Vital Signs: 08/06/21 16:16 08/06/21 18:30 08/06/21 20:13 Temperature 97.4 F L Temperature Source Temporal Pulse Rate 99 66 Respiratory Rate 14 14 Blood Pressure 152/94 H 138/78 H Blood Pressure Mean 113 98 Pulse Ox 100 98 Oxygen Delivery Method Room Air Room Air Room Air 08/06/21 20:58 Temperature 98.4 F Temperature Source Pulse Rate 88 Respiratory Rate 14 Blood Pressure 128/78 H Blood Pressure Mean Pulse Ox 98 Oxygen Delivery Method Positive well nourished General Appearance ED: NAD; Negative for pallor HEENT Denies moist mucous membranes Negative for trauma Eyes PERRL and EOMs intact bilaterally Neck no lymphadenopathy and supple Resp normal respiratory effort and clear to auscultation bilaterally Cardio regular rate and regular rhythm Back/Spine normal to inspection Extremity normal to inspection General Extremety ED: Negative for edema or tenderness General Extremity: Negative for edema Psych mental status grossly normal Skin no rashes or lesions noted General Skin Exam: Negative for jaundice or pallor MDM MDM MDM Narrative Medical decision making narrative: Patient seen and evaluated for chest pain or shortness of breath. She herself showed up at the urgent care for muscle spasms in the back. 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 Insofar as the chest pain she think she is having an anxiety attack because he is out of Klonopin. She did not report this to the urgent care. On arrival I obtained an EKG which is sinus rhythm with a ventricular of 64 bpm without ischemic change or dysrhythmia. Chest x-ray on my interpretation is no acute cardiopulmonary process and the radiologist does agree. Patient was reported to be tachycardic at the urgent care although she was having anxiety attack she states. Her heart rate and respiratory rate as well as her pulse ox are all normal here essentially here she is PERC negative but I did obtain a D-dimer and this is negative. She has a low-grade weakness probably patient has no risk factors for PE. I feel this is reasonable CBC and BMP are unremarkable. High-sensitivity troponin is less than 3. Patient has no cardiac risk factors and she is better with Ativan. I think she is stable to be discharged home. I will give her Zanaflex and Naprosyn for her back pain. She has an appointment to follow-up to get her Klonopin refilled. Patient feels comfortable being discharged at this time. Impression: 1. Thoracic strain 2. Chest pain noncardiac 3. Anxiety attack Lab Data Labs: Laboratory Results - last 24 hr 08/06/21 08/06/21 08/06/21 17:55 17:55 18:35 WBC 8.3 RBC 4.00 L Hgb 12.9 Hct 37.2 MCV 93.0 MCH 32.3 H MCHC 34.7 RDW Std Deviation 40.9 RDW Coeff of Sriram 11.9 Plt Count 251 MPV 9.4 Immature Gran % (Auto) 0.400 Neut % (Auto) 61.3 Lymph % (Auto) 24.8 [place] % (Auto) 7.5 Eos % (Auto) 5.4 H Baso % (Auto) 0.6 Absolute Neuts (auto) 5.1 Absolute Lymphs (auto) 2.05 Nucleated RBC % 0 PT 12.3 INR 1.0 D-Dimer Quant (PE/DVT) 0.43 Sodium 138 Potassium 3.9 Chloride 107 Carbon Dioxide 27.0 Anion Gap 4 L BUN 15 Creatinine 0.83 Estim Creat Clear Calc 89.79 Est GFR (MDRD) Af Amer 101 Est GFR (MDRD) Non-Af 84 BUN/Creatinine Ratio 18.0 Glucose 94 Calcium 9.0 Troponin I High Sens < 3 L Radiography Diagnostic Testing: Clinical Impression(s) from Imaging Studies Chest X-Ray 08/06/21 16:50 IMPRESSION: No radiographic evidence of acute cardiopulmonary disease. at 1705 Reported and signed by: Kartik Vuong MD Electronically Signed: Kartik Vuong MD at 17:04 EDT , Discharge Plan Triage Chief Complaint: Back ED Provider: Ryan Wagner Dx/Rx/DC Orders Instructions: ED Anxiety Reaction, ED Chest Pain, Noncardiac, ED Thoracic Spine Strain Prescriptions: New naproxen [Naprosyn] 500 mg tablet 500 mg PO BID PRN (Reason: pain) Qty: 20 RF: 0 tizanidine [Zanaflex] 4 mg capsule 4 mg PO QHS PRN (Reason: muscle spasticity) Qty: 10 RF: 0 No Action buprenorphine-naloxone 1 EACH film 0.25 ea PO DAILY RF: 0 Primary Care Provider: Care Physician,No Primary Referrals: Care Physician,No Primary [Primary Care Provider] - Disposition Disposition: Home, Self Care Discharge Date/Time: 08/06/21 20:59
[2021-08-06 18:35] LABS: Anion Gap 4 (5-15); BUN 15 mg/dL (7-18); Chloride 107 mmol/L (98-107); Creatinine, Serum 0.83 mg/dL (0.55-1.02); EST Glomerular Filtration Rate 84 mL/min (>60); Est Glom Filt Rate - Afr Amer 101 mL/min (>60); Estimated Creatinine Clearance 89.79 ml/min; Glucose 94 mg/dL (74-106); Potassium 3.9 mmol/L (3.5-5.1); Sodium Level 138 mmol/L (136-145); Troponin-I HS < 3 pg/mL (3.0-54.0)
[2021-08-06] MEDS: LORazepam 2 MG/ML Syringe 0.5 MG IV (18:36)
[2021-08-06 19:13] LABS: D-Dimer Quantitative (DVT/PE) 0.43 FEU/ug/m (0.27-0.49)
[2021-08-06 19:22] LABS: Prothrombin Time (Protime)PT. 12.3 SECONDS (11.7-14.9)
--- NOTE | 2021-08-06 19:28 | CM.ED ---
SW Note Referral Source: Case Find Referral Source: No PCP and No Insurance SW met with patient and provided her with list of Healthcare Providers and also financial packet which included information on [facility] and [place] Medicaid Application. No issues or concerns voiced. Plan: Resources provided Kayla BEE
[2021-08-06 20:13] VITALS: BP 138/78; PULSE 66; RESP 14; O2SAT 98
[2021-08-06 20:58] VITALS: BP 128/78; PULSE 88; RESP 14; TEMP 36.9; O2SAT 98
== END 2021-08-06 20:59 | disposition home or self-care (01) ==
PROVIDERS: Emergency Provider Student in an Organized Health Care Education/Training Program; Visit Provider Student in an Organized Health Care Education/Training Program
DX: M54.9 Dorsalgia, unspecified (principal); S29.019A Strain of muscle and tendon of unspecified wall of thorax, initial encounter; F41.9 Anxiety disorder, unspecified; R07.89 Other chest pain; M62.830 Muscle spasm of back; F17.210 Nicotine dependence, cigarettes, uncomplicated
CPT/HCPCS: 71045; 80048; 84484; 85025; 85379; 85610; 93005; 96374; 99284; A4216